=== PATIENT | male | born 1970 | race Caucasian/White ===

== ENCOUNTER → 2021-10-18 | Outpatient (CLI) | payer OTHER | LOC: KOH-I 11:06 | DX: M25.521 Pain in right elbow (principal) | CPT/HCPCS: 73080 ==

== ENCOUNTER → 2021-10-26 | Outpatient (CLI) | payer OTHER | LOC: KOH-I 14:56 | DX: M25.521 Pain in right elbow (principal); S53.31XA Traumatic rupture of right ulnar collateral ligament, initial encounter; M77.11 Lateral epicondylitis, right elbow | CPT/HCPCS: 73221 ==